=== PATIENT | male | born 1955 | race African-American/Black ===

== ENCOUNTER 2017-07-07 20:24 | Emergency (ER) | payer BC ==
[2017-07-07 21:01] LABS: ADD MAN DIFF? NO
[2017-07-07 21:03] LABS: BASO % 1 % (0-3); EOS # 0.7 x10^3/uL (0.0-0.7); EOS % 11 % (0-3); HEMATOCRIT 39.1 % (39.0-53.0); HEMOGLOBIN 13.6 g/dL (13.0-17.5); LYMPH # 1.9 x10^3/uL (1.0-4.8); LYMPH % 27 % (24-48); MEAN CORPUSCULAR HEMOGLOBIN 33 pg (25-35); MEAN CORPUSCULAR HGB CONC 35 g/dL (31-37); MEAN CORPUSCULAR VOLUME 96 fL (79-100); MONO # 0.7 x10^3/uL (0.0-1.1); MONO % 10 % (0-9); NEUT # 3.6 x10^3uL (1.8-7.7); NEUT % 52 % (31-73); PLATELET COUNT 243 x10^3/uL (140-400); RED BLOOD COUNT 4.09 x10^6/uL (4.30-5.70); RED CELL DISTRIBUTION WIDTH 13.5 % (11.5-14.5)
[2017-07-07] MEDS: IPRATRPIUM/ALBUTEROL 0.5/2.5MG 3 ML NEBU. NEB ×2 (21:05)
[2017-07-07 21:06] LABS: AGAP ISTAT 17 mmol/L (6-14); BUN ISTAT 10 mg/dL (8-26); CHLORIDE ISTAT 108 mmol/L (98-110); GLUCOSE ISTAT 123 mg/dL (70-99); HEMATOCRIT ISTAT 38 % (37-52); HEMOGLOBIN ISTAT 12.9 g/dL (14-18); ION CA ISTAT 1.23 mmol/L (1.13-1.32); POTASSIUM ISTAT 3.6 mmol/L (3.5-5.0); SODIUM ISTAT 144 mmol/L (135-145); TOT CO2 ISTAT 23 mmol/L (23-32)
[2017-07-07 21:12] LABS: INR 1.2 (0.8-1.1); PROTHROMBIN TIME PATIENT 14.3 SEC (11.7-14.0)
[2017-07-07] MEDS ORDERED: CONTRAST GIVEN MC ×2 (21:15)
[2017-07-07] MEDS ORDERED: IOHEXOL 300 MG/ML 100ML VIAL. IV ×2 (21:30)
== END 2017-07-07 22:19 | disposition home or self-care (01) ==
LOC: ER 20:24
DX: J40 Bronchitis, not specified as acute or chronic (principal); K21.9 Gastro-esophageal reflux disease without esophagitis; E78.00 Pure hypercholesterolemia, unspecified; F17.210 Nicotine dependence, cigarettes, uncomplicated
CPT/HCPCS: 36415; 71275; 80047; 85025; 85610; 94640; 99285-25; J7620